=== PATIENT | male | born 2000 | race Caucasian/White ===

== ENCOUNTER 2023-01-24 13:56 | Emergency (ER) | payer OTHER ==
--- NOTE | 2023-01-24 14:03 | ED Physician Documentation ---
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 [place] and told us that she did not feel that he was safe. Recently the patient's been dealing with divorce, he is also lost rank as well as security clearance. He has endorsed to me as well as to his therapist that he would like to jump off of [place]. He reports that well before he entered the [employer] when he was in his teens he did overdose on some medication. He does not know what it was. He did not seek medical treatment thereafter and there were no ill effects related to this. At this time he reports that he is voluntary for psychiatric treatment and mental health stabilization. Review of Systems Cardiac: reports: Reviewed and negative GI: reports: Reviewed and negative : reports: Reviewed and negative Neurologic: reports: Reviewed and negative Psychiatric: reports: Suicidal, Anxiety. denies: Homicidal, Hallucinations, Delusions PD PAST MEDICAL HISTORY - Present Medications Home Medications: Ambulatory Orders Medication Instructions Recorded Confirmed No Known Home Medications 01/24/23 01/24/23 - Allergies Allergies/Adverse Reactions: Allergies Allergy/AdvReac Type Severity Reaction Status Date / Time No Known Drug Allergies Allergy Verified 01/24/23 14:05 PD ED PE NORMAL - General General: Alert and oriented X 3, No acute distress - Cardiac Cardiac: RRR, No murmur - Respiratory Respiratory: Clear bilaterally - Neuro Neuro: Alert and oriented X 3 Eye Opening: Spontaneous Motor: Obeys Commands Verbal: Oriented GCS Score: 15 - Psych Psych: Normal mood (Flat affect. Endorses thoughts of self-harm by wanting to jump off the bridge. Does not contract for safety.) Results - Vitals Vitals: Vital Signs - 24 hr 01/24/23 14:05 Temperature 98.7 C H Heart Rate 78 Respiratory 16 Rate Blood Pressure 130/86 H O2 Saturation 99 Oxygen O2 Source Room air - Labs Labs: Laboratory Tests 01/24/23 01/24/23 01/24/23 14:10 14:16 14:16 WBC 5.5 RBC 5.10 Hgb 15.3 Hct 43.4 MCV 85.1 MCH 30.0 MCHC 35.3 RDW 11.1 L Plt Count 220 MPV 9.6 Neut # (Auto) 3.0 Lymph # (Auto) 2.0 [place] # (Auto) 0.5 Eos # (Auto) 0.0 Baso # (Auto) 0.0 Absolute Nucleated RBC 0.00 Nucleated RBC % 0.0 Sodium 138 Potassium 3.4 L Chloride 102 Carbon Dioxide 28 Anion Gap 8.0 BUN 9 Creatinine 1.2 Estimated GFR (MDRD) 75 L Glucose 99 Calcium 9.5 Magnesium 2.1 Total Bilirubin 1.1 H AST 21 ALT 14 Alkaline Phosphatase 67 Total Creatine Kinase 138 Total Protein 7.9 Albumin 4.9 Globulin 3.0 Albumin/Globulin Ratio 1.6 Lipase 30 TSH Urine Color YELLOW Urine Clarity CLEAR Urine pH 6.5 Ur Specific [place] 1.010 Urine Protein NEGATIVE Urine Glucose (UA) NEGATIVE Urine Ketones NEGATIVE Urine Occult Blood NEGATIVE Urine Nitrite NEGATIVE Urine Bilirubin NEGATIVE Urine Urobilinogen 0.2 (NORMAL) Ur Leukocyte Esterase NEGATIVE Ur Microscopic Review NOT INDICATED Urine Culture Comments NOT INDICATED Salicylates < 6.0 Urine Opiates Screen NEGATIVE Ur Oxycodone Screen NEGATIVE Urine Methadone Screen NEGATIVE Ur Propoxyphene Screen NEGATIVE Acetaminophen < 10 L Ur Barbiturates Screen NEGATIVE Ur Tricyclics Screen NEGATIVE Ur Phencyclidine Scrn NEGATIVE Ur Amphetamine Screen NEGATIVE U Methamphetamines Scrn NEGATIVE U Benzodiazepines Scrn NEGATIVE Urine Cocaine Screen NEGATIVE U Cannabinoids Screen NEGATIVE Ethyl Alcohol < 5.0 SARS-CoV-2 (PCR) 01/24/23 01/24/23 14:16 14:20 WBC RBC Hgb Hct MCV MCH MCHC RDW Plt Count MPV Neut # (Auto) Lymph # (Auto) [place] # (Auto) Eos # (Auto) Baso # (Auto) Absolute Nucleated RBC Nucleated RBC % Sodium Potassium Chloride Carbon Dioxide Anion Gap BUN Creatinine Estimated GFR (MDRD) Glucose Calcium Magnesium Total Bilirubin AST ALT Alkaline Phosphatase Total Creatine Kinase Total Protein Albumin Globulin Albumin/Globulin Ratio Lipase TSH 0.86 Urine Color Urine Clarity Urine pH Ur Specific [place] Urine Protein Urine Glucose (UA) Urine Ketones Urine Occult Blood Urine Nitrite Urine Bilirubin Urine Urobilinogen Ur Leukocyte Esterase Ur Microscopic Review Urine Culture Comments Salicylates Urine Opiates Screen Ur Oxycodone Screen Urine Methadone Screen Ur Propoxyphene Screen Acetaminophen Ur Barbiturates Screen Ur Tricyclics Screen Ur Phencyclidine Scrn Ur Amphetamine Screen U Methamphetamines Scrn U Benzodiazepines Scrn Urine Cocaine Screen U Cannabinoids Screen Ethyl Alcohol SARS-CoV-2 (PCR) NOT DETECTED PD Medical Decision Making - ED course Complexity details: reviewed results, re-evaluated patient, d/w patient ED course: 22-year-old male presents to the emergency department on the advice of his navel command [place] well [place] of suicidal ideation. Patient has recently been struggling with divorce, a loss of rank in the as well as loss of his security clearance. He had endorsed thoughts of wanting to [place]. He has a remote history of suicide attempt by overdose on pills when he was in his teens for which she never sought medical evaluation or treatment. He reports to me that he is not safe to be discharged. We did obtain the usual mental health screening labs and per my interpretation no acute worrisome findings.We did reach out to [facility] psych voluntary placement but they report that there are no psychiatric beds available right now or through the weekend. Nursing staff has sought voluntary psych placement at [facility] which is pending. [id number]: Patient has been accepted to [facility] for further psychiatric care accepting physician is Dr. Abraham. Patient's bed will be available tomorrow morning around 10 AM. He will continue to board in the emergency department until then. Appropriate [employer] paperwork completed. Patient will be signed out to my nighttime colleague to follow-up on any acute overnight events. Departure - Departure Disposition: 65 Psych Hosp/Unit DC/Xfer Clinical Impression: Suicidal ideation Condition: Stable Record reviewed to determine appropriate education?: Yes
[2023-01-24 14:21] LABS: MUDS CUTOFF CONCENTRATIONS CUTOFF CONC BELOW:
[2023-01-24 14:22] LABS: BASOPHILS % (AUTO) 0.5 %; EOSINOPHILS % (AUTO) 0.7 %; HCT - HEMATOCRIT 43.4 % (42.0-52.0); HGB - HEMOGLOBIN 15.3 g/dL (14.0-18.0); LYMPHOCYTES % (AUTO) 36.9 %; MEAN CORPUSCULAR HGB CONC 35.3 g/dL (32.0-36.0); MEAN CORPUSCULAR VOLUME 85.1 fL (80.0-94.0); MEAN PLATELET VOLUME 9.6 fL (7.4-11.4); MONOCYTES # (AUTO) 0.5 10^3/uL (0.0-1.0); MONOCYTES % (AUTO) 8.3 %; NEUTROPHILS % (AUTO) 53.4 %; PLT - PLATELET COUNT 220 10^3/uL (130-450); RED CELL DISTRIBUTION WIDTH 11.1 % (12.0-15.0); WHITE BLOOD COUNT 5.5 x10^3/uL (4.8-10.8)
[2023-01-24 14:30] LABS: BILIRUBIN,URINE NEGATIVE (NEGATIVE); GLUCOSE, URINE (UA) NEGATIVE (NEGATIVE); KETONES,URINE (UA) NEGATIVE (NEGATIVE); LEUKOCYTE ESTERASE, URINE NEGATIVE (NEGATIVE); NITRITE,URINE NEGATIVE (NEGATIVE); OCCULT BLOOD,URINE NEGATIVE (NEGATIVE); PH,URINE 6.5 PH (5.0-7.5); PROTEIN,URINE NEGATIVE (NEGATIVE); UROBILINOGEN,URINE 0.2 (NORMAL) E.U./dL (NORMAL)
[2023-01-24 14:36] LABS: ACETAMINOPHEN < 10 ug/mL (10-30); ALBUMIN 4.9 g/dL (3.2-5.5); ALBUMIN/GLOBULIN RATIO 1.6 (1.0-2.2); ALKALINE PHOSPHATASE 67 IU/L (42-121); ALT ALANINE AMINOTRANSFERASE 14 IU/L (10-60); AST ASPARTATE AMINOTRANSFERASE 21 IU/L (10-42); BILIRUBIN,TOTAL 1.1 mg/dL (0.2-1.0); BUN - BLOOD UREA NITROGEN 9 mg/dL (6-20); CALCIUM 9.5 mg/dL (8.5-10.3); CARBON DIOXIDE - CO2 28 mmol/L (21-32); CHLORIDE 102 mmol/L (101-111); CK- CREATINE KINASE 138 IU/L (22-269); CREATININE 1.2 mg/dL (0.6-1.2); ETOH - ETHANOL < 5.0 mg/dL; GFR - MDRD 75 (>89); GLUCOSE 99 mg/dL (70-100); LIPASE 30 U/L (22-51); MAGNESIUM 2.1 mg/dL (1.7-2.8); POTASSIUM 3.4 mmol/L (3.5-5.0); SALICYLATE < 6.0 mg/dL; SODIUM 138 mmol/L (135-145); TOTAL PROTEIN 7.9 g/dL (6.7-8.2)
[2023-01-24 14:38] LABS: CLARITY,URINE CLEAR (CLEAR)
[2023-01-24 14:40] LABS: AMPHETAMINE SCREEN,URINE NEGATIVE (NEGATIVE); BARBITURATE SCREEN,UR NEGATIVE (NEGATIVE); BENZODIAZEPINES SCREEN, URINE NEGATIVE (NEGATIVE); COCAINE SCREEN URINE NEGATIVE (NEGATIVE); METHADONE SCREEN, URINE NEGATIVE (NEGATIVE); METHAMPHETAMINES SCREEN, URINE NEGATIVE (NEGATIVE); OPIATE SCREEN, URINE NEGATIVE (NEGATIVE); OXYCODONE SCREEN, URINE NEGATIVE (NEGATIVE); PROPOXYPHENE SCREEN, URINE NEGATIVE (NEGATIVE); THC CANNABINOID SCREEN, URINE NEGATIVE (NEGATIVE); TRICYCLIC ANTIDEPRESSANT,URINE NEGATIVE (NEGATIVE)
--- NOTE | 2023-01-25 00:06 | TELEPSYCH PHYS NOTE ---
Telepsych Consultation Note Consult: Name: Alan ToroB: 2000 DateandTime: 01/25/2023 2:36:55 AM [facility] [place] Length of consult: 1 hour This evaluation was conducted via video telepsychiatry with the assistance of onsite staff Reason for consult: SI Requested by: SHAUN TORRES History of Present Illness: Provider/nurse contacted: SHANIQUE Chandler, Dr. Guzman Psych consulted for: SI Chief complaint: I have some really bad thoughts of hurting myself. Psych Consult HPI: Pt is a 22yo M with a past psych hx of depression who presents for SI. Pt admit s to SI w/ plan to jump off a bridge ([place] on and off for years but worsening in the past 2 months. Endorses severe depression. Stressors include going through, lost rank as well as security clearance. Pt has no past psych hospitalizations and 1 prior SA. Pt endorses severe insomnia, severe appetite suppression. Denies substance abuse. Pt has never been treated with psych meds. Denies HI/AVH. 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 [place] called and told us that she did not feel that he was safe. Recently the patient's been dealing with divorce, he is also lost rank as well as security clearance. He has endorsed to me as well as to his therapist that he would like to jump off of [place]. He reports that well before he entered the [employer] when he was in his teens he did overdose on some medication. He does not know what it was. He did not seek medical treatment thereafter and there were no ill effects related to this. At this time he reports that he is voluntary for psychiatric treatment and mental health stabilization. Collateral Contacted: Lou for not contacting the collateral:OtherOther: Pts mother Ana, Sleep issues?: YesSleep Quantity:pt states that when he is able to sleep, he gets about three hoursSleep Quality:poor Psychiatric History/Treatment History: Past diagnoses: depression Hospitalizations: No Current Treatment:YesMedication management:NoTherapy:YesTherapyDesc:pt [place] therapist that he started with about a week and a half ago Suicide Assessment: PSS-3: 1) Over the past 2 weeks have you felt down, depressed or hopeless?Yes 2) Over the past 2 weeks have you had thoughts of killing yourself?Yes 3) Have you ever in your life attempted to kill yourself?Yes Within the past 6 months? PSS-3 Secondary Screen: 1) Positive on PSS-3 questions 2 & 3 active SI with a past attempt?Yes 2) Have you been thinking about how you might kill yourself?Yes 3) Have you had some intention of acting on your thoughts?Yes 4) Lifetime psychiatric hospitalization?Yes 5) Has drinking or substance abuse ever been a problem for you? 6) Current irritability, agitation, or aggression?No PSS-3 Secondary Screen Scoring: Severe Notes: Mild(0-2) No current attempt and no plan/intent Moderate(3-4) No current attempt, Plan OR intent but not both Severe(5-6) Current Attempt with Plan AND intent [facility] Safety Assessment: Risk Factors Stressors: just left him, lost his job/security clearance, financial stressors, not being able to afford to attend the college he was just accepted too Attempts/Self-injury: YesDescription:pt attempted suicide around [id number] Impulsivity:YesDescription: Drug/Alcohol History:No Trauma History:No Access to firearms:No HI/Violence/Property destruction:No Legal: No Family Psych History:YesDescription:pt states that his mother does have a psych history-did not provide further detail Family History of suicide:No Protective Factors: Can handle stress well?No Jainism?No External: Social supports/ Therapeutic relationships: YesDescription:his father, benjy pmother, and friend Kavon Relationship history: Living situation: lives on his own Employment: YesDescription:[employer] Education: high school Responsibility to family/children/work: Future orientation:YesDescription:pt states that he "just wants help" and would be agreeable to any recommendations from the psychiatrist Health History: Medical History: Denies medical history Medications & Freq: pt states that he is not taking any meds Allergies: NKA Mental Status Exam: Appearance and Attire:Normal Psychomotor agitation:Psychomotor retardation Attitude and behavior:Cooperative Speech:No abnormality, Mood:Depressed Affect:Not constricted, Restricted Thought process:Linear Thought content:Suicidal ideation Perception: Intel:Average Abstract:Appropriate Language:No abnormality Orientation:Oriented x 4 Sense:Normal Knowledge:Appropriate for education and socioeconomic status Memory:Intact Insight:Moderate impairment Judgement:Moderate impairment Gait:No abnormality Impression/Risk Assessment: Current Suicide Risk Elevated?Yes Current Violence Risk Elevated?No Issues with ability to care for self?No Summary: Clinical impression: Mood d/o NOS Suicide Risk Detail Assessment 3 mo.suic.&self-inj behav: actual suicidal attempt Lifetime-suic.&self-inj behav: actual suicidal attempt Most severe SI past month: suicide thoughts Current Suicide Risk: high Current Violence Risk: low Risk Assessment: Pt is at high risk for suicide completion. Primary problems are depression, SI. Pt is a 19yo M who presents to the hospital for suicidal thoughts. Pt has a h/o depression. Pt is actively suicidal. Pt meets criteria for inpatient psych admission. Pt is VOLUNTARY legal status. - Recommendations 1. Inpatient psychiatric admission once medically clear. Patient meets criteria for Voluntary commitment. 3. Please consult psychiatry in 24 to 48 hours for reevaluation if considered appropriate. 4. Suicide precautions. 5. Medications: - Start: Zoloft 50mg QAM for depression/anxiety - Start: Seroquel 12.5mg QAM and 50mg QHS for mood/insomnia (May go up or down on the doses depending on sxs and sleep. Do not exceed 200mg daily w/o consultation) - Start: Seroquel 12.5mg Q6 PRN for breakthrough mood sxs 6. Consider: Comfort meds: Trazodone 50mg QHS PRN for insomnia Vistaril 50mg TID PRN for anxiety Zyprexa 5mg Q6 PRN for mild/moderate agitation In the case of severe aggression, Emergency medication may be given as a now dose: 1. Haldol 5mg IM 2. Ativan 2mg IM 3. Benadryl 50mg IM Discussed with provider on duty Thank you for this consult. This note serves as a written report of findings/recommendations and has been made available to the requesting provider. Diagnosis: F33.2 Major depressive disorder, recurrent severe without psychotic features CPT Codes: 53542 Detailed history, exam, moderate complexity medical decision making (25 min) Treatment Plan: General: Level of Care: inpatient psych, Voluntary Psychiatric Clearance: No Observation level 1:1 needed?: Yes Pharmacological: - Start: Zoloft 50mg QAM for depression/anxiety - Start: Seroquel 12.5mg QAM and 50mg QHS for mood/insomnia (May go up or down on the doses depending on sxs and sleep. Do not exceed 200mg daily w/o consultation) - Start: Seroquel 12.5mg Q6 PRN for break Patient psychotic?No Therapy: supportive Follow up needed while in the hospital?: No Discussed plan with onsite steam press tender: Yes Who Dr. Megan Mejia Other: List names and roles of persons who participated in consult: Dr. Megan Mejia
[2023-01-25] MEDS ORDERED: QUEtiapine 25 MG TABLET PO PRN (00:08)
[2023-01-25] MEDS ORDERED: QUEtiapine 100 MG TABLET PO SCH (01:00)
[2023-01-25] MEDS ORDERED: IBUPROFEN 600 MG TABLET PO STA (01:11)
[2023-01-25 06:24] VITALS: BP 105/61
[2023-01-25] MEDS ORDERED: QUEtiapine 25 MG TABLET PO SCH (09:00)
[2023-01-25] MEDS ORDERED: SERTRALINE 50 MG TABLET PO SCH (09:00)
== END 2023-01-25 09:00 ==
LOC: ED 13:56
DX: F33.2 Major depressive disorder, recurrent severe without psychotic features (principal)
CPT/HCPCS: 36415; 80053; 80306; 80307; 80320; 80329; 81003; 82550; 83690; 83735; 84443; 85025; 87635; 90834; 99285; A9270; Q3014; 81001; 87086